=== PATIENT | male | born 1940 | race Caucasian/White ===

== ENCOUNTER 2018-12-17 09:03 | Day surgery (SDC) | payer MEDICARE ==
[2018-12-16 14:48] LABS: BASOPHILS % (AUTO) 0.5 % (0-1); EOSINOPHILS # (AUTO) 0.3 X10'3 (0-0.9); EOSINOPHILS % (AUTO) 3.7 % (0-6); HEMATOCRIT 45.4 % (42.0-52.0); HEMOGLOBIN 15.2 g/dl (14.0-17.9); LYMPHOCYTES # (AUTO) 2.1 X10'3 (1.1-4.8); LYMPHOCYTES % (AUTO) 30.1 % (21-51); MEAN CORPUSCULAR HEMOGLOBIN 32.9 PG (27.0-31.0); MEAN CORPUSCULAR HGB CONC 33.6 g/dL (33.0-36.5); MEAN PLATELET VOLUME 10.5 FL (7.4-10.4); MONOCYTES # (AUTO) 0.8 X10'3 (0-0.9); MONOCYTES % (AUTO) 12.3 % (2-12); NEUTROPHILS # (AUTO) 3.7 X10'3 (1.8-7.7); NEUTROPHILS % (AUTO) 53.4 % (42-75); PLATELET COUNT 195 X10'3 (140-440); RED BLOOD COUNT 4.63 X10'6 (4.70-6.10); RED CELL DISTRIBUTION WIDTH 14.9 % (11.5-14.5); WHITE BLOOD COUNT 6.9 X10'3 (4.5-11.0)
[2018-12-16 14:54] LABS: ALBUMIN 3.2 G/DL (3.4-5.0); ANION GAP 8 (8-16); BLOOD UREA NITROGEN 36 MG/DL (7-18); BUN/CREATININE RATIO 20.7 (5.4-32.0); CALCIUM 9.2 MG/DL (8.5-10.1); CHLORIDE 106 MMOL/L (99-107); CREATININE 1.74 MG/DL (0.60-1.10); POTASSIUM 4.5 MMOL/L (3.5-5.1); SODIUM 138 MMOL/L (135-145); TOTAL CARBON DIOXIDE 24.2 MMOL/L (24-32); eGFR 38 ML/MIN
[2018-12-16 14:56] LABS: GLUCOSE 98 MG/DL (70-104)
[2018-12-16 15:03] LABS: PARTIAL THROMBOPLASTIN TIME 28 SECONDS (22-32)
[2018-12-17] VITALS (13 sets, daily range): BP systolic 100–146; BP diastolic 57–78
[~2018-12-17] VITALS: Ht 172.7 cm; Wt 79.2 kg
[2018-12-17] MEDS ORDERED: diphenhydrAMINE 25mg capsule PO PRN (09:40)
[2018-12-17] MEDS ORDERED: normal saline 1,000 ML IV SCH (09:40)
[2018-12-17] MEDS ORDERED: LORazepam 0.5 MG tablet PO PRN (09:40)
[2018-12-17] MEDS ORDERED: ROSU5TAB PO (09:50)
[2018-12-17] MEDS ORDERED: METO25TA6 PO (09:50)
[2018-12-17] MEDS ORDERED: TRAM50TA2 PO (09:50)
[2018-12-17] MEDS ORDERED: CLOP75TA35 PO (09:50)
[2018-12-17] MEDS ORDERED: nitroGLYCERIN-Tridil 50MG/D5W 250 ML IV ONE (10:30)
[2018-12-17] MEDS ORDERED: midazolam 2 mg/2 ml injection ONE (10:30)
[2018-12-17] MEDS ORDERED: iohexol 350MG/ML 100ml bottle IV ONE ×3 (10:31→11:58)
[2018-12-17] MEDS ORDERED: iohexol 350 MG/ML 50ML vial IV ONE (10:31)
[2018-12-17] MEDS ORDERED: LIDOcaine 1% 30ml preserv. free vial ONE (10:31)
[2018-12-17] MEDS ORDERED: heparin 1,000unit/ml 10ml vial 10 ML ONE (10:31)
[2018-12-17] MEDS ORDERED: fentaNYL/PF 50MCG/1 ML 2ML syringe ONE (10:31)
[2018-12-17] MEDS ORDERED: heparin 1,000 UNITS/NS 500ml 500 ML ONE (11:12)
[2018-12-17] MEDS ORDERED: heparin 25,000 UNIT/250ml bag 250 ML IV ONE (11:44)
[2018-12-17] MEDS ORDERED: DEXTROSE 5% IV ONE (12:00)
[2018-12-17] MEDS ORDERED: sodium bicarbonate (8.4%) inj. 100 ML in dextrose 5%-water 1,000 ML IV ONE (12:00)
[2018-12-17] MEDS ORDERED: SODIUM BICARBONATE IV ONE (12:00)
[2018-12-17] MEDS ORDERED: WATER IV ONE (12:00)
[2018-12-17] MEDS ORDERED: HYDROcodone/acetaminophen 10/325mg tab PO ONE (16:45)
== END 2018-12-17 19:55 | disposition home or self-care (01) ==
LOC: SSTAY O 09:03
PROVIDERS: ATTEND Internal Medicine Cardiovascular Disease
DX: I25.10 Atherosclerotic heart disease of native coronary artery without angina pectoris (principal); I10 Essential (primary) hypertension; E78.5 Hyperlipidemia, unspecified; Z95.1 Presence of aortocoronary bypass graft; Z87.891 Personal history of nicotine dependence; Z79.01 Long term (current) use of anticoagulants; Z79.899 Other long term (current) drug therapy
CPT/HCPCS: 36415; 80048; 85025; 85347; 85610; 85730; 93005; 93459; 99152; 99153; C1769; J1644; J2001; J2250; J3010; J7030; J7040; Q9967; A4620; A6258; J3490